=== PATIENT | female | born 1990 | race American Indian/Alaskan Native ===

== ENCOUNTER 2017-07-30 10:47 | Emergency (ER) | payer MEDICAID, OTHER ==
[2017-07-30 10:58] VITALS: RESP 18; O2SAT 100
[2017-07-30] MEDS ORDERED: cefTRIAXone (Rocephin) 250 mg Inj IM STA (11:47)
[2017-07-30 12:17] LABS: HCG,QUALITATIVE URINE NEGATIVE (NEGATIVE)
[2017-07-30 12:38] LABS: SQUAMOUS EPITHIAL 14 /hpf (0-5); URINE BACTERIA OCC (<OCC); URINE BILIRUBIN NEGATIVE (NEGATIVE); URINE BLOOD NEGATIVE (NEGATIVE); URINE CLARITY Hazy (Clear); URINE COLOR Yellow (YELLOW); URINE GLUCOSE (UA) NORMAL (Normal); URINE LEUKOCYTE ESTERASE NEG Leu/uL (Negative); URINE PROTEIN NEGATIVE (NEGATIVE); URINE UROBILINOGEN NORMAL mg/dL (0.2-1.0)
--- NOTE | 2017-07-30 13:09 | C.PDOC ---
History Of Present Illness 26yo female, presents to ED stating " I think I have a yeast infection." She reports white colored vaginal discharge and vaginal irritation as well; also reports associated burning with urination. Patient denies any fever, chills, nausea or vomiting. Of note, patient was recently treated for gonorrhea and trichomoniasis and she has not had sexual intercourse since then. She denies any other medical complaints. Time Seen by Provider: 07/30/17 11:21 Chief Complaint (Nursing): Female Genitourinary History Per: Patient History/Exam Limitations: no limitations Onset/Duration Of Symptoms: Days Current Symptoms Are (Timing): Still Present Past Medical History Reviewed: Historical Data, Nursing Documentation, Vital Signs Vital Signs: Last Vital Signs Temp 98.3 F 07/30/17 13:21 Pulse 75 07/30/17 13:21 Resp 18 07/30/17 13:21 BP 102/71 07/30/17 13:21 Pulse Ox 100 07/30/17 13:21 - Medical History PMH: No Chronic Diseases Surgical History: No Surg Hx Family History: States: Unknown Family Hx - Social History Hx Tobacco Use: No Hx Alcohol Use: No Hx Substance Use: No - Immunization History Hx Tetanus Toxoid Vaccination: No Hx Influenza Vaccination: No Hx Pneumococcal Vaccination: No Review Of Systems Except As Marked, All Systems Reviewed And Found Negative. Constitutional: Negative for: Fever, Chills Gastrointestinal: Negative for: Nausea, Vomiting Genitourinary: Positive for: Dysuria, Vaginal Discharge Physical Exam - Physical Exam Appears: Non-toxic, No Acute Distress Skin: Normal Color Head: Normacephalic Eye(s): bilateral: Normal Inspection Neck: Normal ROM, Supple Chest: Symmetrical Cardiovascular: Rhythm Regular Respiratory: Normal Breath Sounds, No Wheezing Pelvic: Normal External Exam, Vaginal Discharge (minimal clear to white discharge), Cervical Motion Tenderness Neurological/Psych: Oriented x3 ED Course And Treatment O2 Sat by Pulse Oximetry: 100 (RA) Pulse Ox Interpretation: Normal Medical Decision Making Medical Decision Making: Impression: r/o STD Plan: -- Zithromax 1000 mg PO -- Rocephin 250 mg IM -- Flagyl 2000 mg PO Patient to be discharged with antibiotics and instructed to follow up with OBGYN. 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 Instructions: Pelvic Inflammatory Disease Forms: [facility] (Martiniquais), General Discharge Instructions - POA Present On Arrival: None - Clinical Impression Clinical Impression: Pelvic pain - Scribe Statement The provider has reviewed the documentation as recorded by the Scribe (Brooklyn Duffy) Provider Attestation: All medical record entries made by the Scribe were at my direction and personally dictated by me. I have reviewed the chart and agree that the record accurately reflects my personal performance of the history, physical exam, medical decision making, and the department course for this patient. I have also personally directed, reviewed, and agree with the discharge instructions and disposition.
[2017-07-30 13:22] VITALS: BP 102/71; PULSE 75; TEMP 98.3
== END 2017-07-30 13:23 | disposition home or self-care (01) ==
LOC: C.ER 10:47
DX: R10.2 Pelvic and perineal pain (principal)
CPT/HCPCS: 81001; 84703; 96372; 99284; J0696

== ENCOUNTER 2017-11-06 01:27 | Emergency (ER) | payer OTHER, MEDICAID ==
[2017-11-06 01:56] VITALS: O2SAT 99
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
[2017-11-06 02:42] VITALS: BP 108/70; PULSE 80; RESP 20; TEMP 98
== END 2017-11-06 02:39 | disposition home or self-care (01) ==
LOC: C.ER 01:27
DX: T14.8XXA Other injury of unspecified body region, initial encounter (principal); V49.9XXA Car occupant (driver) (passenger) injured in unspecified traffic accident, initial encounter

== ENCOUNTER 2017-11-09 11:42 | Emergency (ER) | payer MEDICAID, OTHER ==
[2017-11-09 11:49] VITALS: BP 110/77; PULSE 89; RESP 20; TEMP 97.7; O2SAT 99
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
--- NOTE | 2017-11-09 14:39 | RAD ---
PROCEDURE: Cervical Spine Radiographs. HISTORY: Pain. COMPARISON: November 09, 2017. CT cervical spine FINDINGS: BONES: Rotary scoliosis and mild kyphosis. 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 SOFT TISSUES: Normal. No prevertebral soft tissue swelling. OTHER FINDINGS: None. IMPRESSION: No acute findings related to/accounting for the clinical presentation.
== END 2017-11-09 14:40 | disposition home or self-care (01) ==
LOC: C.ER 11:42
DX: S16.1XXA Strain of muscle, fascia and tendon at neck level, initial encounter (principal); V89.2XXA Person injured in unspecified motor-vehicle accident, traffic, initial encounter